=== PATIENT | female | born 1955 | race Caucasian/White ===

== ENCOUNTER 2017-06-06 13:16 | Emergency (ER) | payer BC, OTHER ==
[~2017-06-06] VITALS: Ht 154.9 cm; Wt 65.1 kg
[2017-06-06 13:19] VITALS: TEMP 36.4; Ht 154.9 cm; Wt 65.1 kg
[2017-06-06] MEDS ORDERED: EFF/375 PO (13:43)
[2017-06-06] MEDS ORDERED: MISO200T PO (13:43)
[2017-06-06] MEDS ORDERED: DICL50TA3 PO (13:43)
[2017-06-06] MEDS ORDERED: SODIUM CHLORIDE 0.9% 1000ML 1,000 ML IV STA (14:01)
--- NOTE | 2017-06-06 14:21 | EMERGENCY ROOM VISIT NOTE ---
History First contact with patient: 13:41 Chief Complaint: DIARRHEA Stated Complaint: DIARRHEA, CHILLS, FATIGUE, LEG WEAKNESS Nursing Triage Summary: Pt states diarrhea x2 months, did see pcp started on Prilosec, states does not help, feels bloated and gasey. decreased appetite but eats, no weight lose, Pt a/ox3, ESTEBAN. History of Present Illness The patient is a 61 year old female who presents to the Emergency Room with complaints of diarrhea 2 months. The patient states in March, she P and noticing loose stools, worse in the morning but often lasting throughout the day. She states she usually goes to the bathroom first thing when she wakes up and has an episode of uncomfortable diarrhea. She states approximately 30 minutes later she normally has to use the restroom again. The patient states approximately 30 minutes after eating she also has to move her bowels. She states the diarrhea is almost always loose, but occasionally she does have formed stools. The patient states she has contacted her PCP several times, however has not been able to get a GI appointment. She states her PCP has not sent her for any testing or cultures. They have attempted twice to contact [facility] gastroenterology without getting an appointment. She states "I just can't do this anymore". She states she has been more fatigued this week and normally and has been sleeping 9-11 hours per night. She states she does have a previous history of diarrhea similar to this, however was able to determine that it was related to eating flaxseeds. She has been trying to eat a normal and bland diet full of toast, chicken soup, plain meat and no vegetables. He states this does not seem to help. Bloated and gassy, and states she did passing gas due to being uncertain if she will have a bowel movement. She states she has had a decreased appetite, but he states because she knows she has to. She has not lost any weight, we gained 2 pounds in the past 2 weeks. She has complained of some sweating and chills, worse at work. She states she does drink a lot of T while at work. The patient did try some Imodium a couple weeks ago, and states it did help with her diarrhea, but she only took this one day and states the next day her diarrhea returned. Her PCP did put her on Prilosec, but the patient states this is not helping. She does fill up quickly when eating. She denies any recent travel or medications including antibiotics. Her symptoms are associated with nausea, lower abdominal discomfort and cramping, chills, low back pain. She denies any vomiting or fever. Review of Systems A complete 10 point review of systems was reviewed with the patient with pertinent positives and negatives as per history of present illness. All else were negative. Social History Smoking Status: Current Every Day Smoker Smokeless Tobacco Use: No Alcohol Use: occasionally Drug Use: none Marital Status: single Housing Status: lives alone Occupation Status: employed Current/Historical Medications Scheduled Diclofenac (Voltaren), 1 TAB PO DAILY Misoprostol (Cytotec), 1 TAB PO DAILY Venlafaxine Hcl (Effexor), 0.5 TAB PO DAILY Allergies Contrast dye Physical Exam Vital Signs Date Time Temp Pulse Resp B/P (MAP) Pulse Ox O2 Delivery O2 Flow Rate FiO2 06/06/17 16:31 69 18 154/80 97 06/06/17 13:19 36.4 83 20 160/98 100 Room Air Physical Exam VITALS: Vitals are noted on the nurse's note and reviewed by myself. Vital signs stable. GENERAL: This is a 61-year-old white female, in no acute distress, nondiaphoretic, well-developed well-nourished. SKIN: The skin was without rashes, erythema, edema, or bruising. There is no tenting of the skin. Capillary reflex less than 2 seconds. HEAD: Normocephalic atraumatic. EARS: External auditory canals clear, tympanic membranes pearly fiore without erythema or effusion bilaterally. EYES: Pupils equal round and reactive to light and accommodation. Conjunctivae without injection, sclerae without icterus. Extraocular movements intact. NOSE: Patent, turbinates without inflammation or discharge. No sinus tenderness. MOUTH: Mucous membranes moist. Tonsils are not enlarged. Pharynx without erythema or exudate. Uvula midline. Airway patent. Tongue does not deviate. NECK: Supple without nuchal rigidity. No lymphadenopathy. No thyromegaly. Cervical spine is nontender. No JVD. HEART: Regular rate and rhythm without murmurs gallops or rubs. LUNGS: Clear to auscultation bilaterally without wheezes, rales or rhonchi. No dullness to percussion. No retractions or accessory muscle use. ABDOMEN: Positive bowel sounds x 4. Normal tympanic percussion. Mild tenderness of the right lower quadrant on palpation. No rebound tenderness. No referred tenderness. Otherwise, the abdomen is soft, nontender, without masses or organomegaly. Arceo sign negative. No guarding. MUSCULOSKELETAL: No muscle atrophy, erythema, or edema noted. Full range of motion without joint tenderness in all extremities. No tenderness to palpation. Normal gait. Strength 5/5 throughout. NEURO: Patient was alert and oriented to person place and time. Normal sensation to light and sharp touch. Deep tendon reflexes 2+ throughout. No focal neurological deficits. Medical Decision & Procedures ER Provider Diagnostic Interpretation: Stool cultures were ordered. The patient was unable to give a sample in the emergency department. CBC was without anemia, leukocytosis, thrombocytopenia. CMP was without significant electrolyte abnormality. Lipase was negative. TSH was normal. ESR and CRP were negative for acute findings. Laboratory Results 06/06/17 14:40 Red Blood Count 4.06, Mean Corpuscular Volume 95.3, Mean Corpuscular Hemoglobin 32.3, Mean Corpuscular Hemoglobin Concent 33.9, Mean Platelet Volume 9.3, Neutrophils (%) (Auto) 70.5, Lymphocytes (%) (Auto) 21.7, Monocytes (%) (Auto) 6.2, Eosinophils (%) (Auto) 0.0, Basophils (%) (Auto) 1.3, Neutrophils # (Auto) 2.73, Lymphocytes # (Auto) 0.84, Monocytes # (Auto) 0.24, Eosinophils # (Auto) 0.00, Basophils # (Auto) 0.05 06/06/17 14:40 Test 06/06/17 14:40 06/06/17 14:46 White Blood Count 3.87 K/uL (4.8-10.8) Red Blood Count 4.06 M/uL (4.2-5.4) Hemoglobin 13.1 g/dL (12.0-16.0) Hematocrit 38.7 % (37-47) Mean Corpuscular Volume 95.3 fL (80-100) Mean Corpuscular Hemoglobin 32.3 pg (25-34) Mean Corpuscular Hemoglobin Concent 33.9 g/dl (32-36) Platelet Count 182 K/uL (130-400) Mean Platelet Volume 9.3 fL (7.4-10.4) Neutrophils (%) (Auto) 70.5 % Lymphocytes (%) (Auto) 21.7 % Monocytes (%) (Auto) 6.2 % Eosinophils (%) (Auto) 0.0 % Basophils (%) (Auto) 1.3 % Neutrophils # (Auto) 2.73 K/uL (1.4-6.5) Lymphocytes # (Auto) 0.84 K/uL (1.2-3.4) Monocytes # (Auto) 0.24 K/uL (0.11-0.59) Eosinophils # (Auto) 0.00 K/uL (0-0.5) Basophils # (Auto) 0.05 K/uL (0-0.2) RDW Standard Deviation 46.6 fL (36.4-46.3) RDW Coefficient of Variation 13.5 % (11.5-14.5) Immature Granulocyte % (Auto) 0.3 % Immature Granulocyte # (Auto) 0.01 K/uL (0.00-0.02) Erythrocyte Sedimentation Rate 2 mm/hr (0-21) Anion Gap 6.0 mmol/L (3-11) Est Creatinine Clear Calc Drug Dose 57.5 ml/min Estimated GFR () 80.0 Estimated GFR (Non- 69.1 BUN/Creatinine Ratio 14.4 (10-20) Calcium Level 8.6 mg/dl (8.5-10.1) Magnesium Level 2.3 mg/dl (1.8-2.4) Total Bilirubin 0.4 mg/dl (0.2-1) Aspartate Amino Transf (AST/SGOT) 13 U/L (15-37) Alanine Aminotransferase (ALT/SGPT) 22 U/L (12-78) Alkaline Phosphatase 51 U/L (45-117) C-Reactive Protein < 0.29 mg/dl (0-0.29) Total Protein 7.0 gm/dl (6.4-8.2) Albumin 3.8 gm/dl (3.4-5.0) Globulin 3.2 gm/dl (2.5-4.0) Albumin/Globulin Ratio 1.2 (0.9-2) Lipase 171 U/L (73-393) Thyroid Stimulating Hormone (TSH) 1.290 uIu/ml (0.300-4.500) Urine Color YELLOW Urine Appearance CLEAR (CLEAR) Urine pH 5.0 (4.5-7.5) Urine Specific [place] 1.020 (1.000-1.030) Urine Protein NEG (NEG) Urine Glucose (UA) NEG (NEG) Urine Ketones NEG (NEG) Urine Occult Blood TRACE (NEG) Urine Nitrite NEG (NEG) Urine Bilirubin NEG (NEG) Urine Urobilinogen NEG (NEG) Urine Leukocyte Esterase NEG (NEG) Urine WBC (Auto) 1-5 /hpf (0-5) Urine RBC (Auto) 0-4 /hpf (0-4) Urine Hyaline Casts (Auto) 1-5 /lpf (0-5) Urine Epithelial Cells (Auto) 0-5 /lpf (0-5) Urine Bacteria (Auto) NEG (NEG) Medications Administered Medications (Trade) Dose Ordered Sig/Mario Route Start Time Stop Time Status Last Admin Dose Admin Sodium Chloride 1,000 ml @ 999 mls/hr Q1H1M STAT IV 06/06/17 14:01 06/06/17 15:01 DC 06/06/17 14:50 999 MLS/HR Medical Decision The patient presented today complaining of 2 month long history of loose stools and diarrhea. She denies any blood or mucus in the stool. The patient has been seen by her PCP regarding the complain, however has not had much of a workup completed. Her symptoms didn't respond to Imodium in the past, but she did only take this medication once. He did start her on Prilosec, and she states this did not help with her symptoms. Her PCP is attempting to get the patient established with gastroenterology regarding further evaluation and management. I did attempt to give the patient some food, as she states she is always moving her bowels as soon as she eats in order to get a stool sample, but she was unable to move her bowels. I do suspect irritable bowel syndrome as the cause of her diarrhea, however I encouraged her to follow up with gastrology urology for ongoing management. Differential diagnosis includes: Irritable bowel syndrome, Crohn's disease, gastroenteritis, infectious process such as Giardia, Shigella, salmonella, or C. difficile, diverticulitis, malignancy, and others. Medication Reconcilliation Current Medication List: was personally reviewed by me Blood Pressure Screening Patient's blood pressure: Normal blood pressure Impression Primary Impression: Diarrhea Departure Information Dispostion Home / Self-Care Condition GOOD Referrals Jake Tucker D.O. (PCP) Patient Instructions ED Vomiting Diarrhea Nonspecific Ad, My [facility] Additional Instructions You were seen in the emergency department today regarding 2 month long history of diarrhea. I do suspect irritable bowel syndrome, however cannot rule out infectious causes. Labs in the emergency department were negative for acute findings. You were unable to give us a stool sample, so we were unable to culture the stool. I do recommend he follow up with your PCP for stool cultures and/or gastroenterology for further evaluation. He should follow up in 1-2 days. Please drink plenty of fluids and stay well-hydrated. You may consider using Imodium as needed for diarrhea. Please do not exceed the recommended daily dosages. Please do not use this medication more than 3 days in row. Eat a bland diet including baked chicken, cooked vegetables, rice. Try to eat high fiber foods. This can help to firm up the stool. Avoid foods such as carbonated or alcoholic beverages, caffeine, rales fruits and vegetables. Please try to control stress, as he overly stressed or anxious can worsen symptoms. You should get regular exercise and try to get plenty of sleep. Return to the emergency department for worsening fever, chills, nausea, vomiting , abdominal pain, bloody stool, mucus in the stool, extremely foul-smelling stool, or other concerning symptoms. Work Instructions Return To Work: 1 day Problem Qualifiers Primary Impression: Diarrhea Diarrhea type: unspecified type Qualified Codes: R19.7 - Diarrhea, unspecified
[2017-06-06 14:48] LABS: BASO % 1.3 %; BASO ABS # 0.05 K/uL (0-0.2); COMPLETE YES; HEMATOCRIT 38.7 % (37-47); IG% 0.3 %; LYMPH % 21.7 %; LYMPH ABS # 0.84 K/uL (1.2-3.4); MEAN CELL VOLUME 95.3 fL (80-100); MEAN CORPUSCULAR HEMOGLOBIN 32.3 pg (25-34); MEAN CORPUSCULAR HGB CONC 33.9 g/dl (32-36); MEAN PLATELET VOLUME 9.3 fL (7.4-10.4); MONO % 6.2 %; NEUT % 70.5 %; PLATELET COUNT 182 K/uL (130-400); RED BLOOD COUNT 4.06 M/uL (4.2-5.4); WHITE BLOOD COUNT 3.87 K/uL (4.8-10.8)
[2017-06-06 14:56] LABS: URINE APPEARANCE CLEAR (CLEAR); URINE BILIRUBIN NEG (NEG); URINE COLOR YELLOW; URINE EPITHELIAL CELL AUTO 0-5 /lpf (0-5); URINE NITRITE NEG (NEG); UROBILINOGEN NEG (NEG); ZZUR CULT IF INDIC CLEAN CATCH NO
[2017-06-06 15:16] LABS: ALT/SGPT 22 U/L (12-78); AST/SGOT 13 U/L (15-37); BLOOD UREA NITROGEN 13 mg/dl (7-18); BUN/CREATININE RATIO 14.4 (10-20); CALCIUM 8.6 mg/dl (8.5-10.1); CARBON DIOXIDE 27 mmol/L (21-32); CHLORIDE 105 mmol/L (98-107); CREATININE 0.91 mg/dl (0.60-1.20); GLUCOSE 149 mg/dl (70-99); MAGNESIUM 2.3 mg/dl (1.8-2.4); POTASSIUM 4.2 mmol/L (3.5-5.1); SODIUM 138 mmol/L (136-145)
[2017-06-06 15:16] LABS: MANUAL MICROSCOPIC REQUIRED? NO; REVIEW REQ? NO
[2017-06-06 15:24] LABS: ALB/GLOB RATIO 1.2 (0.9-2); ALKALINE PHOSPHATASE 51 U/L (45-117); C-REACTIVE PROTEIN < 0.29 mg/dl (0-0.29)
[2017-06-06 16:31] VITALS: BP 154/80; PULSE 69; O2SAT 97
== END 2017-06-06 16:32 | disposition home or self-care (01) ==
LOC: C.EDB 13:18
DX: R19.7 Diarrhea, unspecified (principal); F17.210 Nicotine dependence, cigarettes, uncomplicated; Z79.899 Other long term (current) drug therapy